=== PATIENT | female | born 1980 | race Caucasian/White ===

== ENCOUNTER → 2019-05-12 10:06 | Outpatient (CLI) | payer OTHER, SELFPAY ==
--- NOTE | 2019-05-12 | DI.MG.S_ITS ---
BILATERAL DIGITAL SCREENING MAMMOGRAM 3D/2D WITH CAD: 05/12/2019 CLINICAL: Routine screening. Comparison is made to exams dated: 03/29/2015 mammogram and 07/26/2014 mammogram - [facility]. There are scattered fibroglandular elements in both breasts. Current study was also evaluated with a Computer Aided Detection (CAD) system. There are benign post operative findings in the right breast. No significant masses, calcifications, or other findings are seen in either breast. There has been no significant interval change. IMPRESSION: There is no mammographic evidence of malignancy. A 1 year screening mammogram is recommended. This exam was interpreted at Station ID: [id number]. NOTE: For mammograms, a report in lay terms will be sent to the patient. Approximately 15% of breast malignancies will not be visualized mammographically. In the management of a palpable breast mass, a negative mammogram must not discourage biopsy of a clinically suspicious lesion. Electronically Signed By: Evelia hughes/anson:05/12/2019 17:45:38 letter sent: Normal Exam ACR BI-RADS Category 2: Benign Finding(s) 3342F
== END ==
PROVIDERS: Family Provider Nurse Practitioner; PCP Nurse Practitioner Family; Referring Provider Nurse Practitioner Family; Visit Provider Nurse Practitioner Family
DX: Z12.31 Encounter for screening mammogram for malignant neoplasm of breast (principal)
CPT/HCPCS: 77063; 77067

== ENCOUNTER → 2020-05-05 11:27 | Outpatient (CLI) | payer OTHER, SELFPAY ==
[2020-05-05 11:56] LABS: COVID19 -Nasal RAPID Negative (Negative)
== END ==
PROVIDERS: Family Provider Nurse Practitioner; PCP Nurse Practitioner Family; Visit Provider Nurse Practitioner
DX: Z20.822 Contact with and (suspected) exposure to COVID-19 (principal)
CPT/HCPCS: 87635

== ENCOUNTER → 2020-05-05 11:44 | Outpatient (CLI) | payer OTHER, SELFPAY ==
[2020-05-05 15:39] LABS: Adenovirus F 40/41 Not Detected (Not Detect); Astrovirus Not Detected (Not Detect); Campylobacter Not Detected (Not Detect); Clostridium difficile toxin AB Not Detected (Not Detect); Cryptosporidium Not Detected (Not Detect); Cyclospora cayetanensis Not Detected (Not Detect); Entamoeba histolytica Not Detected (Not Detect); Enteroaggregative E.coli Not Detected (Not Detect); Enteropathogenic E.coli Not Detected (Not Detect); Enterotoxigenic E.coli It/st Not Detected (Not Detect); Giardia lamblia Not Detected (Not Detect); Norovirus GI/GII Not Detected (Not Detect); Plesiomonsa shigelloides Not Detected (Not Detect); Rotavirus A Not Detected (Not Detect); Salmonella Not Detected (Not Detect); Sapovirus Not Detected (Not Detect); Shiga-like toxin-prod E.coli Not Detected (Not Detect); Shigella/Enteroinvasive E.coli Not Detected (Not Detect); Vibrio Not Detected (Not Detect); Vibrio cholerae Not Detected (Not Detect); Yersinia enterocolitica Not Detected (Not Detect)
== END ==
PROVIDERS: Family Provider Nurse Practitioner; PCP Nurse Practitioner Family; Referring Provider Nurse Practitioner; Visit Provider Nurse Practitioner
DX: Z20.822 Contact with and (suspected) exposure to COVID-19 (principal); R19.7 Diarrhea, unspecified
CPT/HCPCS: 87507; 87635

== ENCOUNTER → 2022-11-22 08:49 | Outpatient (CLI) | payer OTHER, SELFPAY | PROVIDERS: Family Provider Nurse Practitioner; PCP Nurse Practitioner Family; Visit Provider Nurse Practitioner Family | DX: N39.0 Urinary tract infection, site not specified (principal); N89.8 Other specified noninflammatory disorders of vagina | CPT/HCPCS: 87077; 87086; 87186; 87210 ==

== ENCOUNTER → 2023-01-21 15:22 | Outpatient (CLI) | payer OTHER, SELFPAY ==
[2023-01-21 17:06] LABS: Cholesterol 270 mg/dL (140-199); HDL Cholesterol 53 mg/dL (40-60); LDL Cholesterol Calculated 189 mg/dL (<100); Triglycerides 141 mg/dL (35-150)
== END ==
PROVIDERS: Family Provider Nurse Practitioner; PCP Nurse Practitioner Family; Referring Provider Nurse Practitioner Family; Visit Provider Nurse Practitioner Family
DX: Z51.81 Encounter for therapeutic drug level monitoring (principal); E78.5 Hyperlipidemia, unspecified
CPT/HCPCS: 36415; 80061

== ENCOUNTER 2023-07-23 07:05 | Observation (INO) | payer OTHER, SELFPAY ==
[2023-07-23] VITALS (23 sets, daily range): BP systolic 99–136; BP diastolic 49–70; PULSE 56–84; RESP 12–19; TEMP 36.2–36.8; O2SAT 97–100; BMI 25.0
--- NOTE | 2023-07-23 | PATH_ITS ---
[facility] Accession Number: [id number] No. of containers..01 Tissue . 01 Material submitted: . appendix - APPENDIX . 01 Diagnosis: A. APPENDIX, APPENDECTOMY: Acute appendicitis, with mild transmural acute inflammation, and mild chronic serositis. No evidence of malignancy. MRV 07/31/2023 1323 Local . 01 Electronically signed: . Paty Muniz MD, Pathologist NPI- [id number] . 01 Gross description: . Received in formalin with two identifiers and appendix, is a duncan, vermiform appendix, 4.7 cm in length by 1.0 cm in diameter, with violaceous, roughened serosa and mesoappendix extending out to 2.1 cm. The margin is inked blue, and the lumen is patent, filled with red-brown, semisolid material, and averages 0.2 cm in diameter. The carlin average 0.4 cm thick and are pale duncan and grossly intact with several small possible diverticula measuring up to 0.3 cm deep. No distinct lesions are identified. Household Appliance Mechanic sections to include the margin, one-half of the bisected distal tip with possible diverticula and cross section are submitted in A1. ([id number]) /MRV 07/24/2023 1805 Local . 01 Pathologist provided ICD-10: K35.80 . 01 CPT . 090247 Specimen Comment: A courtesy copy of this report has been sent to [phone] Performed at: [address] [address] [address], [place], [place] [id number] MD Juvenal Barajas MD Phone: [phone]
[2023-07-23] MEDS: SODIUM CHLORIDE 0.9% 1,000 ML 1000 ML IV (07:30)
--- NOTE | 2023-07-23 07:39 | ED_ITS ---
HPI - Abdominal Pain General Chief Complaint: Abdominal Pain Stated Complaint: can't keep food down, abd pain Time Seen by Provider: 07/23/23 07:22 Source: patient Mode of arrival: Ambulatory History of Present Illness HPI narrative: Patient is a healthy 43-year-old female who presents today with nausea vomiting diarrhea ongoing for the last 5-6 days. She said initially started with diarrhea she would 3-4 episodes of diarrhea and now she only has diarrhea when she eats. She started vomiting last night unable to keep anything down. She has an ongoing abdominal ache. Not dizzy or lightheaded. Denies any hematemesis or bloody stool. No chest pain palpitations or shortness of breath. No one else is sick at home she has not done any recent traveling. Related Data Home Medications Medication Instructions Recorded Confirmed pravastatin 20 mg tablet 20 mg PO DAILY 07/23/23 07/23/23 Previous Rx's Medication Instructions Recorded hydrocodone 5 mg-acetaminophen 325 1 tab PO Q8H PRN pain #10 tabs 07/23/23 mg tablet Allergies Allergy/AdvReac Type Severity Reaction Status Date / Time No Known Drug Allergies Allergy Verified 07/23/23 07:47 Patient History Surgical History Status post delivery (03/04/10) Status post delivery (01/23/14) Status post dilation and curettage (06/20/11) Status post tubal ligation (01/23/14) Family History Father Age: 67 History of heart attack Hyperlipidemia Hypertension Grandfather Age: 85 History of heart attack Grandmother Age: 84 Heart disease Mother Age: 65 Hyperlipidemia Hypertension Grandfather History of heart attack Grandmother History of heart attack Social History household members: spouse Smoking Status: Never smoker Smoking Status: Never smoker alcohol intake frequency: holidays/special occasions only Substance Use Type: does not use Exam Initial Vital Signs Initial Vital Signs: Vital Signs Temperature 98 F 07/23/23 07:12 Pulse Rate 80 07/23/23 07:12 Respiratory Rate 19 07/23/23 07:12 Blood Pressure 125/61 07/23/23 07:12 Pulse Oximetry 100 07/23/23 07:12 Oxygen Delivery Method Room Air 07/23/23 07:12 GENERAL: Alert pleasant 43-year-old female appears to not feel well and in no acute distress. HEENT: Head atraumatic,EOMI, pupils reactive, face symmetric, dry mucous membranes CARDIOVASCULAR: Regular rate and rhythm without murmurs, rubs or gallops. RESPIRATORY: Breath sounds equal bilaterally, no wheezes rales or rhonchi. ABDOMEN: Soft, mildly tender no significant distention minimal pain over periumbilical area EXTREMITIES: Normal range of motion, no clubbing or edema. Neurovascularly intact NEUROLOGICAL: Alert and oriented x4.Normal gait and speech. Cranial nerves II through XII grossly intact. SKIN: Warm, dry, no laceration, no petechiae, no rashes or lesions. Course Orders Ordered: Acetaminophen (Acetaminophen 325 Mg Tablet) 650 mg PO Q6H PRN PRN Reason: Fever/Mild Pain (1-3) Hydrocodone Bitart/Acetaminophen (Hydrocodone/Acet 5/325 Tablet) 1 tab PO Q4H PRN PRN Reason: Pain, Moderate (4-6) Hydrocodone Bitart/Acetaminophen (Hydrocodone/Acet 5/325 Tablet) 2 tab PO Q4H PRN PRN Reason: Pain, Severe (7-10) Hydromorphone HCl (Hydromorphone 0.5 Mg Inj) 0.5 mg IV Q2H PRN PRN Reason: Pain, Severe (7-10) Ibuprofen (Ibuprofen 600 Mg Tablet) 600 mg PO Q6H PRN PRN Reason: Fever/Mild Pain (1-3) Naloxone HCl (Naloxone 0.4 Mg/Ml Vial) 0.2 mg IV Q2MIN PRN PRN Reason: Opiate Reversal Ondansetron HCl (Ondansetron 4 Mg/2 Ml Inj) 4 mg IV Q8HR PRN PRN Reason: Nausea And Vomiting Discontinued Medications Acetaminophen (Acetaminophen 325 Mg Tablet) 975 mg PO NOW PRN PRN Reason: Pain, Moderate (4-6) Last Admin: 07/23/23 12:09 Dose: 975 mg Documented By: TANVI Benzocaine (Benzocaine/Menthol 1 Rosa Pkt) 1 each PO PRN PRN PRN Reason: Sore Throat Benzocaine (Benzocaine/Menthol 1 Rosa Pkt) 1 each PO PRN PRN PRN Reason: Sore Throat Bupivacaine HCl 30 ml/ (Epinephrine HCl 0.15 mg) 0 ml INJ NOW ONE Stop: 07/23/23 13:05 Last Admin: 07/23/23 13:04 Dose: 20 ml Documented By: Fentanyl (Fentanyl 100 Mcg/2 Ml Inj) 0 mcg IV Q5M PRN PRN Reason: Pain, Severe (7-10) Fentanyl (Fentanyl 100 Mcg/2 Ml Inj) 0 mcg IV Q5M PRN PRN Reason: Pain, Severe (7-10) Hydromorphone HCl (Hydromorphone 1 Mg Inj) 0 mg IV Q5MIN PRN PRN Reason: Pain, Moderate (4-6) Hydromorphone HCl (Hydromorphone 1 Mg Inj) 0 mg IV Q5MIN PRN PRN Reason: Pain, Mild (1-3) Hydroxyzine HCl (Hydroxyzine 50 Mg/Ml Inj) 25 mg IM NOW PRN PRN Reason: Pain, Mild (1-3) Hydroxyzine HCl (Hydroxyzine 50 Mg/Ml Inj) 25 mg IM NOW PRN PRN Reason: Pain, Mild (1-3) Sodium Chloride (Normal Saline 0.9%) 1,000 mls @ 1,000 mls/hr IV BOLUS ONE Stop: 07/23/23 08:32 Last Infusion: 07/23/23 09:03 Dose: Infused Documented By: Admin: 07/23/23 07:30 Dose: 1,000 mls/hr Documented By: STEVEN Piperacillin Sod/Tazobactam (Sod 4.5 gm/ Sodium Chloride) 100 mls @ 200 mls/hr IV NOW ONE Stop: 07/23/23 08:55 Last Infusion: 07/23/23 09:45 Dose: Infused Documented By: Admin: 07/23/23 09:12 Dose: 200 mls/hr Documented By: MANDY Lactated Ringer's (Lactated Ringers) 1,000 mls @ 42 mls/hr IV CONT ALEKSANDRA Last Admin: 07/23/23 13:32 Dose: 42 mls/hr Documented By: Infusion: 07/23/23 13:32 Dose: Infused Documented By: Admin: 07/23/23 12:07 Dose: 42 mls/hr Documented By: TANVI Lactated Ringer's (Lactated Ringers) 1,000 mls @ 120 mls/hr IV CONT ALEKSANDRA Lactated Ringer's (Lactated Ringers) 1,000 mls @ 120 mls/hr IV CONT ALEKSANDRA Ketorolac Tromethamine (Ketorolac 30 Mg/Ml Vial) 15 mg IV NOW ONE Stop: 07/23/23 07:44 Last Admin: 07/23/23 08:01 Dose: 15 mg Documented By: MANDY Meperidine HCl (Meperidine 50 Mg/Ml Inj) 12.5 mg IV PACUNOW PRN PRN Reason: Mild pain or shivering Meperidine HCl (Meperidine 50 Mg/Ml Inj) 12.5 mg IV PACUNOW PRN PRN Reason: Mild pain or shivering Metoclopramide HCl (Metoclopramide 10 Mg/2 Ml Inj) 10 mg IV NOW PRN PRN Reason: Nausea And Vomiting Metoclopramide HCl (Metoclopramide 10 Mg/2 Ml Inj) 10 mg IV NOW PRN PRN Reason: Nausea And Vomiting Morphine Sulfate (Morphine 10 Mg/Ml Inj) 0 mg IV Q5M PRN PRN Reason: Pain, Mild (1-3) Morphine Sulfate (Morphine 10 Mg/Ml Inj) 0 mg IV Q5M PRN PRN Reason: Pain, Mild (1-3) Ondansetron HCl (Ondansetron 4 Mg Odt) 4 mg SL NOW PRN PRN Reason: Nausea And Vomiting Ondansetron HCl (Ondansetron 4 Mg/2 Ml Inj) 4 mg IV NOW PRN PRN Reason: Nausea And Vomiting Ondansetron HCl (Ondansetron 4 Mg/2 Ml Inj) 4 mg IV NOW PRN PRN Reason: Nausea And Vomiting Ondansetron HCl (Ondansetron 4 Mg/2 Ml Inj) 4 mg IV NOW PRN PRN Reason: Nausea And Vomiting Oxycodone HCl (Oxycodone Ir 5 Mg Tablet) 5 mg PO PACUNOW PRN PRN Reason: Mild or moderate pain Oxycodone HCl (Oxycodone Ir 5 Mg Tablet) 5 mg PO PACUNOW PRN PRN Reason: Mild or moderate pain Pantoprazole Sodium (Pantoprazole 40 Mg Vial) 40 mg IV NOW ONE Stop: 07/23/23 07:44 Last Admin: 07/23/23 08:01 Dose: 40 mg Documented By: MANDY Vital Signs Vital signs: Vital Signs - 8 hr 07/23/23 07:12 07/23/23 07:31 Temperature 98 F Pulse Rate 80 69 Respiratory Rate 19 Blood Pressure 125/61 Pulse Oximetry 100 100 Oxygen Delivery Method Room Air Room Air MDM - Abdominal Pain Lab Data 07/23/23 07:24 07/23/23 07:24 Labs: Lab Results 07/23/23 07/23/23 Range/Units 07:24 07:56 WBC 11.0 (4.5-11.0) X10^3/uL RBC 4.34 (4.0-5.2) X10^6/uL Hgb 13.4 (12.0-16.0) g/dL Hct 40.0 (36-46) % MCV 92.1 (80-100) fL MCH 30.8 (26-34) PG MCHC 33.5 (30-36) % RDW 12.8 (11.6-14.8) % Plt Count 231 (150-400) X10^3/uL Neut % (Auto) 82.4 H (50-75) % Lymph % (Auto) 11.2 L (25-40) % [facility] % (Auto) 4.2 (3-14) % Eos % (Auto) 1.9 L (2-4) % Baso % (Auto) 0.3 (0-2) % Neut # (Auto) 9000 H (9677-1249) /uL Lymph # (Auto) 1200 (2234-7042) /uL [facility] # (Auto) 500 (0-900) /uL Eos # (Auto) 200 (0-450) /uL Baso # (Auto) 0 (0-100) /uL Sodium 137 (137-145) mmol/L Potassium 4.1 (3.4-5.1) mmol/L Chloride 103 (98-107) mmol/L Carbon Dioxide 27 (22-32) mmol/L BUN 18 H (7-17) mg/dL Creatinine 0.78 (0.52-1.04) mg/dL Estimated GFR > 60 (>60) mL/min BUN/Creatinine Ratio 23.1 H (6-22) Glucose 114 H (70-100) mg/dL Calcium 8.8 (8.4-10.2) mg/dL Total Bilirubin 0.8 (0.2-1.3) mg/dL AST 33 (14-36) IU/L ALT 23 (<35) IU/L Alkaline Phosphatase 68 (38-126) U/L Total Protein 7.8 (6.3-8.2) g/dL Albumin 4.5 (3.5-5.0) g/dL Globulin 3.3 (1.7-4.1) g/dL Albumin/Globulin Ratio 1.4 (1.0-2.8) Lipase 261 (23-300) U/L Urine RBC 1-5/hpf (0-5/HPF) Urine WBC 5-10/hpf H (0-5/HPF) Ur Squamous Epith Cells 10-30 /hpf H (0-5/HPF) Urine Bacteria None seen (None) Urine Mucus 2+ H (Negative) Ur Culture Indicated? Specimen cultured Vol Urine Centrifuged 10ml (spun) Point of care testing: Point of Care Testing Test Results Negative Urine Dip Bedside Urine Glucose Negative Bedside Urine Bilirubin - Negative Bedside Urine Ketone ++ 40 Urine Specific [place] 1.025 Bedside Urine Occult Blood ++ Bedside Urine pH 6.5 Bedside Urine Protein +/- 15 Bedside Urine Urobilinogen - Negative Bedside Urine Nitrite - Negative Bedside Urine Leukocytes + 70 Esterase MDM Narrative Medical decision making narrative: Patient 43-year-old female healthy presents today with vomiting diarrhea abdominal pain ongoing for the 5 days. She is having gastroenteritis like symptoms abdomen is minimally tender. She has been unable to eat or drink much. Blood work has been reviewed cbc-no evidence of anemia WBC 11 mild left shift cmp: No significant electrolyte abnormality creatinine 0.78 no evidence of JOCE, bilirubin liver enzymes within normal limits lipase 261 no evidence of pancreatitis CT does show acute appendicitis without any sort of abscess 9:00 Dr. Tompkins surgery updated patient's symptoms test results recommends keeping patient NPO. Currently scrubbed in but will be by to see her soon as he can Patient accepted to Dr. Tompkins Discharge Plan Departure Patient Disposition: Admitted As Inpatient Clinical Impression: Acute appendicitis Qualifiers: Acute appendicitis type: with localized peritonitis Appendicitis gangrene presence: without gangrene Appendicitis perforation presence: without perforation Appendicitis abscess presence: without abscess Qualified Code(s): K 35.30 - Acute appendicitis with localized peritonitis, without perforation or gangrene Admit Date/Time: 07/23/23 09:54 Admit Provider: Zaid Bryan
[2023-07-23 07:40] LABS: Add Manual Diff / Slide Review NO; Basophils Absolute Auto 0 /uL (0-100); Basophils Percent Auto 0.3 % (0-2); Eosinophils Absolute Auto 200 /uL (0-450); Eosinophils Percent Auto 1.9 % (2-4); Hemoglobin 13.4 g/dL (12.0-16.0); Lymphocytes Absolute Auto 1200 /uL (1100-4500); Lymphocytes Percent Auto 11.2 % (25-40); Mean Corpuscular HGB Conc 33.5 % (30-36); Mean Corpuscular Hemoglobin 30.8 PG (26-34); Mean Corpuscular Volume 92.1 fL (80-100); Monocytes Absolute Auto 500 /uL (0-900); Monocytes Percent Auto 4.2 % (3-14); Neutrophils Absolute Auto 9000 /uL (1500-7000); Neutrophils Percent Auto 82.4 % (50-75); Platelet Count 231 X10^3/uL (150-400); Red Blood Cell Count 4.34 X10^6/uL (4.0-5.2); Red Cell Distribution Width 12.8 % (11.6-14.8)
[2023-07-23 07:43] LABS: Alanine Aminotransferase 23 IU/L (<35); Albumin 4.5 g/dL (3.5-5.0); Albumin Globulin Ratio 1.4 (1.0-2.8); Alkaline Phosphatase 68 U/L (38-126); Aspartate Aminotransferase 33 IU/L (14-36); BUN Creatinine Ratio 23.1 (6-22); Bilirubin Total 0.8 mg/dL (0.2-1.3); Blood Urea Nitrogen 18 mg/dL (7-17); Calcium 8.8 mg/dL (8.4-10.2); Carbon Dioxide 27 mmol/L (22-32); Chloride 103 mmol/L (98-107); Estimated Glomerular Filt Rate > 60 mL/min (>60); Globulin 3.3 g/dL (1.7-4.1); Glucose 114 mg/dL (70-100); Lipase 261 U/L (23-300); Potassium 4.1 mmol/L (3.4-5.1); Sodium 137 mmol/L (137-145); Total Protein 7.8 g/dL (6.3-8.2)
[2023-07-23 07:44] LABS: HEMOLYSIS 53 (0-50)
--- NOTE | 2023-07-23 07:55 | DI.CT.S_ITS ---
PROCEDURE: CT ABDOMEN PELVIS W CON INDICATIONS: pain with vomiting TECHNIQUE: After the administration of intravenous contrast, axial sections acquired from the lung bases to the pubic symphysis. Coronal and sagittal reformats were performed. For radiation dose reduction, the following was used: automated exposure control, adjustment of mA and/or kV according to patient size. COMPARISON: None. FINDINGS: Image quality: Diagnostic Lower chest: Unremarkable lung bases. Normal heart size Liver: Unremarkable Gallbladder and biliary system: Unremarkable, nondilated Pancreas: No ductal dilation Spleen: Nonenlarged Adrenals: No discrete nodules Kidneys: No solid mass or hydronephrosis Vessels and lymph nodes: Main portal vein is patent. No abdominal aortic aneurysm. No pathologic lymph nodes by size criteria. Bowel and peritoneum: No evidence of small bowel obstruction. There is nonspecific omental fat stranding. No drainable abscess. There is a small amount of physiologic free fluid in the pelvis. Acute appendicitis. Prominent fluid-filled loops of small bowel are seen. Body wall: Small fat containing umbilical hernia Pelvis: Bladder is unremarkable. Reproductive organs are prominent, likely physiologic for patient's age. If there is concern, consider ultrasound. Bones: No acute or suspicious osseous finding. IMPRESSION: Acute appendicitis. No drainable abscess. Nonspecific mesenteric and omental fat stranding. Prominent loops of fluid-filled small bowel, likely additional enteritis. No bowel obstruction. Other findings above. Dictated by: Memo Peralta M.D. on 07/23/2023 at 8:37 Approved by: Memo Peralta M.D. on 07/23/2023 at 8:44
[2023-07-23] MEDS: PANTOPRAZOLE 40 MG VIAL IV (08:01)
[2023-07-23] MEDS: KETOROLAC 30 MG/ML VIAL 15 MG IV (08:01)
[2023-07-23 08:13] LABS: Urine Volume 10mL (spun)
[2023-07-23 08:16] LABS: Bacteria Urine None Seen; Culture Indicated Urine Specimen Cultured; Mucus Urine 2+ (Negative); RBC Urine 1-5/HPF (0-5/HPF); Squamous Epithelial Cell Urine 10-30 /HPF (0-5/HPF); WBC Urine 5-10/HPF (0-5/HPF)
[2023-07-23] MEDS: PIPERACILLIN/TAZO 4.5 GM in SODIUM CHLORIDE 0.9% 100 ML IV (09:12)
--- NOTE | 2023-07-23 12:06 | PM.HP.1 ---
History of Present Illness History of Present Illness Date Patient Seen: 07/23/23 Time Patient Seen: 12:06 Chief complaint: can't keep food down, abd pain Narrative: Stefani is a 43 year old woman who presented to the emergency department this morning complaining of several days of nausea and abdominal pain. A CT scan showed acute appendicitis. She is otherwise healthy. She has had sections twice, a D&C and a tubal ligation. She has received a dose of Zosyn. [facility] Surgical History Status post delivery (03/04/10) Status post delivery (01/23/14) Status post dilation and curettage (06/20/11) Status post tubal ligation (01/23/14) Family History Father Age: 67 History of heart attack Hyperlipidemia Hypertension Grandfather Age: 85 History of heart attack Grandmother Age: 84 Heart disease Mother Age: 65 Hyperlipidemia Hypertension Grandfather History of heart attack Grandmother History of heart attack Social History household members: spouse Smoking Status: Never smoker Meds Home Medications and Allergies Home Medications Medication Instructions Recorded Confirmed Type phenazopyridine 200 mg tablet 200 mg PO TID 6 doses #6 tabs 11/22/22 11/22/22 Rx (Pyridium) Allergies Allergy/AdvReac Type Severity Reaction Status Date / Time No Known Drug Allergies Allergy Verified 07/23/23 07:47 Exam Vital Signs (past 8 hours): - 07/23/23 07:12 07/23/23 07:31 07/23/23 08:04 Temperature 98 F Pulse Rate 80 69 66 Respiratory Rate 19 Blood Pressure 125/61 Pulse Oximetry 100 100 100 Oxygen Delivery Method Room Air Room Air 07/23/23 08:30 07/23/23 08:30 07/23/23 09:00 Temperature Pulse Rate 71 Respiratory Rate Blood Pressure 122/58 L 114/70 Pulse Oximetry 100 Oxygen Delivery Method 07/23/23 09:00 07/23/23 09:30 07/23/23 09:30 Temperature 98.3 F Pulse Rate 84 67 Respiratory Rate 17 Blood Pressure 104/57 L Pulse Oximetry 100 100 Oxygen Delivery Method 07/23/23 10:00 07/23/23 10:00 07/23/23 10:30 Temperature Pulse Rate 73 68 Respiratory Rate Blood Pressure 110/58 L Pulse Oximetry 97 100 Oxygen Delivery Method Room Air 07/23/23 10:59 Temperature 97.1 F L Pulse Rate 64 Respiratory Rate 16 Blood Pressure 122/59 L Pulse Oximetry 99 Oxygen Delivery Method Oxygen Delivery Method Room Air Const General: healthy appearing Resp Effort & Inspection: normal respiratory effort GI Other: Abdomen is soft without rebound or guarding minimally tender to palpation at McBurney's point Objective Labs 07/23/23 07:24 07/23/23 07:24 Labs: Laboratory Results - last 24 hr 07/23/23 07/23/23 07:24 07:56 WBC 11.0 RBC 4.34 Hgb 13.4 Hct 40.0 MCV 92.1 MCH 30.8 MCHC 33.5 RDW 12.8 Plt Count 231 Neut % (Auto) 82.4 H Lymph % (Auto) 11.2 L [place] % (Auto) 4.2 Eos % (Auto) 1.9 L Baso % (Auto) 0.3 Neut # (Auto) 9000 H Lymph # (Auto) 1200 [place] # (Auto) 500 Eos # (Auto) 200 Baso # (Auto) 0 Sodium 137 Potassium 4.1 Chloride 103 Carbon Dioxide 27 BUN 18 H Creatinine 0.78 Estimated GFR > 60 BUN/Creatinine Ratio 23.1 H Glucose 114 H Calcium 8.8 Total Bilirubin 0.8 AST 33 ALT 23 Alkaline Phosphatase 68 Total Protein 7.8 Albumin 4.5 Globulin 3.3 Albumin/Globulin Ratio 1.4 Lipase 261 Urine RBC 1-5/hpf Urine WBC 5-10/hpf H Ur Squamous Epith Cells 10-30 /hpf H Urine Bacteria None seen Urine Mucus 2+ H Ur Culture Indicated? Specimen cultured Vol Urine Centrifuged 10ml (spun) Assessment & Plan Assessment and plan (1) Acute appendicitis: Qualifiers: Acute appendicitis type: with localized peritonitis Appendicitis gangrene presence: without gangrene Appendicitis perforation presence: without perforation Appendicitis abscess presence: without abscess Qualified Code(s): K35.30 - Acute appendicitis with localized peritonitis, without perforation or gangrene Status: Acute Plan We reviewed the risks and benefits of laparoscopic appendectomy versus antibiotic therapy. She would like to proceed with surgery. Quality VTE Deep Vein Thrombosis/Pulmonary Embolism Present on Admission: No
[2023-07-23] MEDS: LACTATED RINGERS 1,000 ML 42 ML IV ×2 (12:07→13:32)
[2023-07-23] MEDS: ACETAMINOPHEN 325 MG TABLET 975 MG PO (12:09)
--- NOTE | 2023-07-23 12:54 | SUR.OPER ---
Supine on padded OR bed, head on pillow, right secured on padded arm board at <90 degrees abduction, left arm padded and tucked at patients side. legs uncrossed, safety belt at thigh, tape over blanket over lower legs.
--- NOTE | 2023-07-23 12:54 | PC.NURSE ---
Addendum entered by Tressa Chavez R.N. 07/23/23 17:20: Pt returned from OR @ 1430 Drowsy, arouses easily. IVF infusing as per MD orders. Denies discomfort. Taking p.o. w/o incidence. Stable post op course. Call light w/in reach, Pt calls appropriately for needs Pt has D/C orders if she feels like D/C this evening. Continue w/plan of care. Original Note: Pt arrived to RM 211 from ED at 1055. OR staff called and surgery time changed from his afternoon to 1130. Admit completed, pt & spouse oriented to room & call system. Pre op staff to transfer pt at 1120 Pt escorted to pre-op by OR staff in stable condition.
[2023-07-23] MEDS: BUPIVACAINE 0.5% (PF) 30 ML, EPINEPHrine 0.15 MG INJ (13:04)
--- NOTE | 2023-07-23 13:48 | PM.OP.1 ---
Operative Date/Time/Diagnoses Date of procedure: 07/23/23 Time of procedure: 13:48 Pre-op diagnosis: Acute appendicitis Post-op diagnosis: same Procedure & Clinicians Procedure: Laparoscopic appendectomy Same procedure as scheduled: Yes Surgeon: Zaid Bryan Anesthesia Type: General Operative Notes Procedure in detail: The patient was on IV antibiotics. The patient was brought to the operating room, placed on the table in the supine position and general endotracheal anesthesia was induced. A time-out was performed. The abdomen was prepped and draped in the usual fashion. After injection of 0.25% Marcaine a 1 cm infraumbilical incision was created with a 15 blade scalpel. The umbilical stalk was grasped with a Feliciano clamp to elevate the abdominal wall. The infraumbilical midline fascia was cleared over 1 cm and the fascia was scored with cautery. The peritoneum was pierced with a Peon clamp. The Ezra port was placed and the abdomen was insufflated to 15 mmHg. The camera was inserted and there was no evidence of any injury from the entry. Next, 5 mm ports were placed in the suprapubic and left lower quadrant positions under direct vision. The patient was placed in Trendelenburg with the right-side elevated. The terminal ileum was swept away from the cecum and the appendix was visualized. The appendix was inflamed and distended but not perforated and there was no evidence of gangrene. The mesoappendix was divided with the Power-seal to the base. Two PDS Endoloops were placed at the base and a 3rd endoloop was placed about a cm distally and the appendix was divided sharply. The specimen was placed in a Endo-Catch bag. A small amount of fluid with suctioned from the base of the appendix and pelvis. The table was flattened and the terminal ileum and omentum were allowed to slide in over the appendiceal stump. Finally, the 5 mm ports were removed under direct vision. The pneumoperitoneum was released and the Ezra port was removed followed by the Endo-Catch bag. Additional local was injected into the fascia and the infraumbilical incision was closed with 2 interrupted 2-0 Vicryl sutures. The skin incisions were closed with 4 Monocryl. Steri-Strips were applied followed by Band-Aids. EBL: 5 mL Specimen: Appendix Post-operative Condition: stable Disposition: PACU
[2023-07-23] MEDS: HYDROCODONE/ACET 5/325 TABLET 1 TAB PO (19:16)
--- NOTE | 2023-07-24 12:04 | CM.DPNOTE ---
[phone]; offering assist with discharge planning. MARIALUISA
== END 2023-07-23 20:28 | disposition home or self-care (01) ==
LOC: ED 09:54 → AC 09:55
PROVIDERS: Admitting Provider Surgery; Emergency Provider Emergency Medicine; Family Provider Nurse Practitioner; PCP Nurse Practitioner Family; Referring Provider Emergency Medicine; Visit Provider Surgery
PROC: 0DTJ4ZZ Resection of Appendix, Percutaneous Endoscopic Approach (ICD-10-PCS; CPT 44970; principal; 2023-07-23 15:45)
DX: K35.30 Acute appendicitis with localized peritonitis, without perforation or gangrene (principal)
CPT/HCPCS: 44970; 36415; 74177; 80053; 81003; 81015; 81025; 83690; 85025; 87086; 96361; 96365; 96375; 99221; 99284; G0378; C9113; J0171; J1100; J1885; J2405; J2543; J2704; J3010; Q9967

== ENCOUNTER → 2024-07-13 17:37 | Outpatient (CLI) | payer BC, SELFPAY ==
[2023-07-23 10:58] VITALS: BMI 25.0
--- NOTE | 2024-07-13 17:39 | DI.MG.S_ITS ---
MM screening mammo BI: 07/13/2024. BI-RADS: 2 CLINICAL: 44-year old female for bilateral screening mammogram. Tyrer-Cuzick lifetime risk of 7.8%. No personal or first-degree family history of breast cancer. The patient had a prior right breast biopsy. PRIOR EXAMS 06/10/2023, 05/12/2019, 11/13/2015, 03/29/2015, 07/26/2014. MAMMOGRAPHY TECHNIQUE: 2D and 3D (tomosynthesis) digital mammographic views obtained, with additional images as needed for full coverage. Current study was also evaluated with a Computer Aided Detection (CAD) system. DENSITY B. There are scattered areas of fibroglandular density. MAMMOGRAPHY FINDINGS Right: Benign-appearing post-surgical changes noted on the right. There are no suspicious masses, calcifications, or other findings in the breast. Left: No suspicious mass, asymmetry, microcalcification, or other abnormality seen. IMPRESSION: Right * No evidence of malignancy with benign findings. Left * No evidence of malignancy. RECOMMENDATIONS Bilateral * Annual screening mammography. OVERALL ASSESSMENT CATEGORY BI-RADS-2: Benign. The [employer] recommends annual screening mammography beginning at age 40 for women with average risk of breast cancer. ELECTRONICALLY SIGNED: Jeanne Welsh M.D. on 07/18/2024 at 01:12:56 AM PT Interpreting Station ID: [id number]
== END ==
PROVIDERS: Family Provider Nurse Practitioner; PCP Nurse Practitioner Family; Referring Provider Family Medicine; Visit Provider Family Medicine
DX: Z12.31 Encounter for screening mammogram for malignant neoplasm of breast (principal)
CPT/HCPCS: 77063; 77067